=== PATIENT | male | born 1975 | race Caucasian/White ===

== ENCOUNTER → 2017-04-23 | Outpatient (CLI) | payer OTHER ==
--- NOTE | 2017-04-23 13:35 | DIAGNOSTIC IMAGING REPORT ---
L VENOUS DOPP LOWER EXT UNILAT CLINICAL HISTORY: L CALF STRAIN/ANKLE SWELLING pain. Edema. TECHNIQUE: Venous Doppler COMPARISON STUDY: None FINDINGS: Normal study IMPRESSION: Normal study . No evidence for deep venous thrombosis The above report was generated using voice recognition software. It may contain grammatical, syntax or spelling errors. Electronically signed by: Kwame Acosta M.D. 04/23/2017 1:34 PM Dictated Date/Time: 04/23/2017 1:33 PM
== END | disposition home or self-care (01) ==
LOC: C.ULTRBC 13:04
DX: M79.662 Pain in left lower leg (principal); M79.89 Other specified soft tissue disorders